=== PATIENT | female | born 1975 | race Caucasian/White ===

== ENCOUNTER 2019-02-07 15:51 | Emergency (ER) | payer BC ==
[2019-02-07] MEDS ORDERED: LIDOCAINE 1% MPF 5 ML VIAL ONE (16:27)
--- NOTE | 2019-02-07 16:40 | EDPHYS ---
Physician Documentation [facility] Name: Cesar Herman Age: 43 yrs Sex: Female : 1975 Arrival Date: 02/07/2019 Time: 15:52 Bed 12 Private MD: ED Physician Felipe Sales HPI: 02/07 16:40 This 43 yrs old Female presents to ER via Ambulatory with complaints of kb Puncture Wound To Hand. 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 The complaints affect kb the palm of left hand. Context: The problem was sustained at work. Onset: The symptoms/episode began/occurred just prior to arrival. Modifying factors: The symptoms are alleviated by nothing, the symptoms are aggravated by nothing. Associated signs and symptoms: The patient has no apparent associated signs or symptoms. Severity of symptoms: At their worst the symptoms were moderate, in the emergency department the symptoms are unchanged. The patient has not experienced similar symptoms in the past. The patient has not recently seen a physician. Historical: - Allergies: 15:56 No Known Allergies; la1 - PMHx: 15:56 None; la1 - Immunization history:: Adult Immunizations up to date. - Social history:: Smoking status: Patient/guardian denies using tobacco. - Ebola Screening: : No symptoms or risks identified at this time. ROS: 16:40 Constitutional: Negative for fever, chills, and weight loss, Cardiovascular: Negative kb for chest pain, palpitations, and edema, Respiratory: Negative for shortness of breath, cough, wheezing, and pleuritic chest pain, Abdomen/GI: Negative for abdominal pain, nausea, vomiting, diarrhea, and constipation, Back: Negative for injury and pain, MS/Extremity: Negative for injury and deformity, Neuro: Negative for headache, weakness, numbness, tingling, and seizure. 16:40 Skin: Positive for puncture. Exam: 16:40 Constitutional: This is a well developed, well nourished patient who is awake, alert, kb and in no acute distress. Head/Face: Normocephalic, atraumatic. Chest/axilla: Normal chest wall appearance and motion. Nontender with no deformity. No lesions are appreciated. Cardiovascular: Regular rate and rhythm with a normal S1 and S2. No gallops, murmurs, or rubs. Normal PMI, no JVD. No pulse deficits. Respiratory: Lungs have equal breath sounds bilaterally, clear to auscultation and percussion. No rales, rhonchi or wheezes noted. No increased work of breathing, no retractions or nasal flaring. Abdomen/GI: Soft, non-tender, with normal bowel sounds. No distension or tympany. No guarding or rebound. No evidence of tenderness throughout. MS/ Extremity: Pulses equal, no cyanosis. Neurovascular intact. Full, normal range of motion. Neuro: Awake and alert, GCS 15, oriented to person, place, time, and situation. Cranial nerves II-XII grossly intact. Motor strength 5/5 in all extremities. Sensory grossly intact. Cerebellar exam normal. Normal gait. 16:40 Skin: injury, puncture(s), that are superficial, of the palm of left hand. Vital Signs: 15:56 BP 136 / 91; Pulse 79; Resp 16; Temp 97.5; Pulse Ox 98% on R/A; Weight 99.79 kg; Height la1 5 ft. 9 in. (175.26 cm); 15:56 Body Mass Index 32.49 (99.79 kg, 175.26 cm) la1 Laceration: 16:38 Wound Repair of 1cm ( 0.4in ) subcutaneous laceration to palm of left hand. Linear kb shaped.. Distal neuro/vascular/tendon intact. Anesthesia: Wound infiltrated with 1 mls of 1% lidocaine. Wound prep: Extensive cleansing with hibiclenz by me, Wound irrigation with saline by me. Skin closed with 2 5-0 Prolene using interrupted sutures and sterile technique. Dressed with Neosporin, bandaid. Patient tolerated well. MDM: 16:26 Patient medically screened. kb 16:38 Data reviewed: vital signs, nurses notes. Data interpreted: Pulse oximetry: on room air kb is 98 %. Interpretation: normal. Counseling: I had a detailed discussion with the patient and/or guardian regarding: the historical points, exam findings, and any diagnostic results supporting the discharge/admit diagnosis, the need for outpatient follow up, a family practitioner, to return to the emergency department if symptoms worsen or persist or if there are any questions or concerns that arise at home. 02/07 16:26 Order name: Prolene, Sutures; Complete Time: 16:45 kb 02/07 16:26 Order name: Dressing - Wound; Complete Time: 16:45 kb 02/07 16:26 Order name: Gloves, Sterile; Complete Time: 16:45 kb 02/07 16:26 Order name: Setup Suture Tray; Complete Time: 16:45 kb Administered Medications: 16:35 Drug: Lidocaine (1 %) 1 vials Volume: 5 ml; Route: Infiltration; Disposition: 18:13 Co-signature as Attending Physician, Felipe Sales MD. rn Disposition: 02/07/19 16:39 Discharged to Home. Impression: Puncture wound without foreign body of left hand. - Condition is Stable. - Discharge Instructions: Puncture Wound, [id number]. - Medication Reconciliation Form, Thank You Letter, Antibiotic Education, Prescription Opioid Use form. - Follow up: Private Physician; When: 2 - 3 days; Reason: Recheck today's complaints, Continuance of care, Re-evaluation by your physician. Follow up: Emergency Department; When: As needed; Reason: Worsening of condition. Signatures: Rachel Quinones, BROILER CHEF OR COOK-C BROILER CHEF OR COOK-Ckb Mary More, RN Felipe Agrawal MD MD rn Attema, Lee, RN RN la1 Corrections: (The following items were deleted from the chart) 16:55 16:39 02/07/2019 16:39 Discharged to Home. Impression: Puncture wound without foreign iw body of left hand. Condition is Stable. Forms are Medication Reconciliation Form, Thank You Letter, Antibiotic Education, Prescription Opioid Use. Follow up: Private Physician; When: 2 - 3 days; Reason: Recheck today's complaints, Continuance of care, Re-evaluation by your physician. Follow up: Emergency Department; When: As needed; Reason: Worsening of condition. kb
--- NOTE | 2019-02-07 16:40 | ER ---
Nurse's Notes [facility] Name: Cesar Herman Age: 43 yrs Sex: Female : 1975 Arrival Date: 02/07/2019 Time: 15:52 Bed 12 Private MD: Diagnosis: Puncture wound without foreign body of left hand Presentation: 02/07 15:55 Presenting complaint: Patient states: I accidently stabbed my left palm with a la1 screwdriver. Last tetanus 2014. Transition of care: patient was not received from another setting of care. Onset of symptoms was February 07, 2019. Risk Assessment: Do you want to hurt yourself or someone else? Patient reports no desire to harm self or others. Initial Sepsis Screen: Does the patient meet any 2 criteria? No. Patient's initial sepsis screen is negative. Does the patient have a suspected source of infection? No. Patient's initial sepsis screen is negative. Care prior to arrival: None. 15:55 Method Of Arrival: Ambulatory la1 15:55 Acuity: AARON 4 la1 Historical: - Allergies: 15:56 No Known Allergies; la1 - PMHx: 15:56 None; la1 - Immunization history:: Adult Immunizations up to date. - Social history:: Smoking status: Patient/guardian denies using tobacco. - Ebola Screening: : No symptoms or risks identified at this time. Screenin:53 Abuse screen: Denies threats or abuse. Denies injuries from another. Nutritional iw screening: No deficits noted. Tuberculosis screening: No symptoms or risk factors identified. Fall Risk None identified. Assessment: 16:30 General: Appears in no apparent distress. Behavior is calm, cooperative. Pain: iw Complains of pain in left hand and palm of left hand. Neuro: Level of Consciousness is awake, alert, obeys commands. Cardiovascular: Patient's skin is warm and dry. Respiratory: Respiratory effort is even, unlabored. Derm: Skin is intact, is healthy with good turgor. Musculoskeletal: Range of motion: intact in all extremities. Injury Description: Puncture sustained to palm of left hand is superficial. Vital Signs: 15:56 BP 136 / 91; Pulse 79; Resp 16; Temp 97.5; Pulse Ox 98% on R/A; Weight 99.79 kg; Height la1 5 ft. 9 in. (175.26 cm); 15:56 Body Mass Index 32.49 (99.79 kg, 175.26 cm) la1 ED Course: 15:52 Patient arrived in ED. as 15:56 Triage completed. la1 15:56 Arm band placed on left wrist. la1 16:01 Rachel Quinones [facility]-C [facility]. kb 16:01 Felipe Sales MD is Attending Physician. kb 16:40 Assist provider with laceration repair on palm of left hand that was 2.5 cm. or less iw using Steri-strips. Set up tray. Performed by Rachel GALE Dressed with band aid, Patient tolerated well. Patient did not have IV access during this emergency room visit. 16:43 Mary More, RN is Primary Nurse. iw 16:55 Patient has correct armband on for positive identification. iw Administered Medications: 16:35 Drug: Lidocaine (1 %) 1 vials Volume: 5 ml; Route: Infiltration; iw Outcome: 16:39 Discharge ordered by MD. kb 16:54 Discharged to home ambulatory. iw 16:54 Condition: good 16:54 Discharge instructions given to patient, Instructed on discharge instructions, follow up and referral plans. Demonstrated understanding of instructions, follow-up care, wound care. 16:55 Patient left the ED. iw Signatures: Rachel Quinones FNP-C FNP-Lata Vasquez as Mary More, RN ESTEBAN iw Feroz Nguyen RN RN la1
== END 2019-02-07 16:55 | disposition home or self-care (01) ==
LOC: ER 15:51
PROC: 0JQK0ZZ Repair Left Hand Subcutaneous Tissue and Fascia, Open Approach (ICD-10-PCS; principal; 2019-02-07)
DX: S61.432A Puncture wound without foreign body of left hand, initial encounter (principal); W27.0XXA Contact with workbench tool, initial encounter; Y93.9 Activity, unspecified; Y92.89 Other specified places as the place of occurrence of the external cause; Y99.8 Other external cause status
CPT/HCPCS: 99283

== ENCOUNTER → 2023-07-25 | Emergency (ER) | payer BC ==
[~2023-07-25] MED LIST: KETOROLAC 30 MG/ML INJ ONE; MORPHINE 4 MG/ML SYR ONE; ONDANSETRON 4 MG/2 ML VIAL ONE
--- NOTE | 2023-07-25 10:50 | RAD REPORT ---
EXAM DESCRIPTION: RAD - Chest Single View - 07/25/2023 10:46 am CLINICAL HISTORY: BLUNT CHEST TRAUMA COMPARISON: No comparisons FINDINGS: Lines: None. Lungs: No evidence of edema or pneumonia. Pleural: No significant pleural effusions or pneumothorax. Cardiac: The heart size is within normal limits. Mediastinum: Within normal limits. Bones: No acute fractures. Other: None IMPRESSION: No acute cardiopulmonary disease.
[2023-07-25 10:58] LABS: Albumin 3.6 g/dL (3.4-5.0); Bilirubin Total 0.3 mg/dL (0.2-1.0); Potassium 3.9 mEq/L (3.5-5.1); Protein, Total 6.9 g/dL (6.4-8.2)
[2023-07-25 11:01] LABS: Absolute Lymphocytes (CBC) 2.1 K/uL (0.7-4.9); Hematocrit 41.2 % (36.0-45.0); Lymphocytes % 30.6 % (15.3-44.8); MCV 90.1 fL (80-100); MPV 7.5 fL (7.6-11.3); Platelets 210 thou/uL (152-406); RBC Red Blood Cell Count 4.57 M/uL (3.86-4.86)
--- NOTE | 2023-07-25 11:37 | RAD REPORT ---
EXAM DESCRIPTION: CT - Thorax W/ Con - 07/25/2023 11:28 am CLINICAL HISTORY: BLUNT CHEST TRAUMA COMPARISON: No comparisons TECHNIQUE: CT scan of the chest was obtained with IV contrast All CT scans are performed using dose optimization technique as appropriate and may include automated exposure control or mA/KV adjustment according to patient size. FINDINGS: Chest Wall: No suspicious thyroid nodules or pathologic lymphadenopathy. Lungs: No acute abnormality. 3 mm noncalcified pulmonary nodule in the left upper lobe. Other smaller sub 3 mm nodules noted. Pleura: No significant effusions or pneumothorax. Mediastinum/germain: No pathologic lymphadenopathy. Pulmonary arteries/Aorta: No filling defect identified. No aortic aneurysm. Heart: No significant pericardial effusion. Normal heart size. Upper abdomen: No acute abnormality.Left renal sinus cyst. Bones: Nondisplaced left lateral seventh rib fracture. IMPRESSION: Nondisplaced left anterolateral seventh rib fracture. No pneumothorax. Small sub 4 mm pulmonary nodules.Per Fleischner criteria, if the patient is low risk for lung cancer then no follow-up is required. If the patient is high risk for lung cancer, recommend 12 month follow -up chest CT .
--- NOTE | 2023-07-25 12:15 | ER ---
Nurse's Notes [facility] Name: Cesar Herman Age: 48 yrs Sex: Female : 1975 Arrival Date: 07/25/2023 Time: 10:13 Bed 13 Private MD: Varghese Dean V Diagnosis: Strain of muscle and tendon of back wall of thorax;Strain of muscle and tendon of front wall of thorax;Fall on same level, unspecified;Fracture of one rib, left side-7th;Abnormal findings on diagnostic imaging of other specified body structures-small subpleural pulmonary nodules, multiple Presentation: 07/25 10:21 Chief complaint: Patient states: MECHANICAL FALL Y/D 1030, LEFT RIB PAIN, LUE PAIN. bp Coronavirus screen: At this time, the client does not indicate any symptoms associated with coronavirus-19. Ebola Screen: No symptoms or risks identified at this time. Initial Sepsis Screen: Does the patient meet any 2 criteria? No. Patient's initial sepsis screen is negative. Does the patient have a suspected source of infection? No. Patient's initial sepsis screen is negative. Risk Assessment: Do you want to hurt yourself or someone else? Patient reports no desire to harm self or others. Onset of symptoms was July 24, 2023 at 10:30. 10:21 Method Of Arrival: Ambulatory bp 10:21 Acuity: AARON 2 bp Triage Assessment: 10:23 General: Appears in no apparent distress. uncomfortable, Behavior is cooperative, bp appropriate for age, anxious. Pain: Complains of pain in left lateral posterior chest, left lateral anterior chest and left arm. 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 - Social history:: Smoking status: Patient denies any tobacco usage or history of. - Family history:: not pertinent. Screenin:39 [facility] ED Fall Risk Assessment (Adult) History of falling in the last 3 months, me1 including since admission Yes- single mechanical fall (1 pt) Confusion or Disorientation No (0 pts) Intoxicated or Sedated No (0 pts) Impaired Gait No (0 pts) Mobility Assist Device Used No (0 pt) Altered Elimination No (0 pt) Score/Fall Risk Level 0 - 2 = Low Risk Maintained a safe environment, Provided non-skid footwear, Hourly rounding (assess needs \T\ fall precautionary measures) done. Abuse screen: Denies threats or abuse. Nutritional screening: No deficits noted. Tuberculosis screening: No symptoms or risk factors identified. Assessment: 11:55 Reassessment: No changes from previously documented assessment. me1 Vital Signs: 10:21 BP 126 / 78; Pulse 76; Resp 16; Temp 98; Pulse Ox 100% ; Weight 89.81 kg; Height 5 ft. bp 7 in. ; 10:28 BP 119 / 91; Pulse 75; Resp 15; Pulse Ox 99% on R/A; me1 11:00 BP 115 / 74; Pulse 74; Resp 16; Pulse Ox 99% on R/A; me1 12:00 BP 118 / 74; Pulse 69; Resp 16; Pulse Ox 100% on R/A; me1 10:21 Body Mass Index 31.01 (89.81 kg, 170.18 cm) bp ED Course: 10:15 Patient arrived in ED. rg4 10:15 Varghese Dean MD is Private Physician. rg4 10:16 Jj Ardon MD is Attending Physician. radha 10:23 Triage completed. bp 10:23 Arm band placed on. bp 10:27 Stephan Monroy, RN is Primary Nurse. rs5 10:34 Inserted saline lock: 22 gauge in right antecubital area, using aseptic technique. ds4 Blood collected. 10:48 Chest Single View XRAY In Process Unspecified. EDMS 11:30 CT Chest W/ Con In Process Unspecified. EDMS 12:14 Varghese Dean MD is Referral Physician. radha 12:31 INCENTIVE SPIROMETRY Sent. me1 12:39 Patient has correct armband on for positive identification. Bed in low position. Call me1 light in reach. Side rails up X 1. Provided Education on: POC. Verbalized understanding. . 12:39 No provider procedures requiring assistance completed. me1 12:40 IV discontinued, intact, bleeding controlled, No redness/swelling at site. Pressure me1 dressing applied. Administered Medications: 10:38 Drug: Ondansetron IVP 4 mg IVP once; over 2 minutes Route: IVP; Site: right antecubital;rs5 12:27 Follow up: Response: No adverse reaction me1 10:39 Drug: Ketorolac IVP 30 mg IVP once Route: IVP; Site: right antecubital; rs5 12:28 Follow up: Response: No adverse reaction; Pain is decreased me1 11:04 Not Given (Patient Refused): morphineor iv 2 mg IVP once over 4 mins rs5 11:04 Not Given (Patient Refused): morphineor iv 2 mg IVP once over 4 mins rs5 Medication: 12:41 VIS not applicable for this client. me1 Outcome: 12:14 Discharge ordered by . radha 12:39 Discharged to nh1 12:39 Discharged to home ambulatory, 12:39 Condition: stable 12:39 Instructed on discharge instructions, follow up and referral plans. medication usage, Demonstrated understanding of instructions, follow-up care, medications, Prescriptions given X 3, 12:41 Patient left the ED. me1 Signatures: Dispatcher [employer] EDMS Jj Ardon MD MD cha Swanson, Donovan ds4 Arti Rodriguez rg4 Charbel Ferrari, RN RN bp Stephan Monroy RN RN rs5 Jennifer Siegel RN RN me1 Corrections: (The following items were deleted from the chart) 12:29 10:21 Chief complaint: Patient states: MECHANICAL FALL Y/D 1030, LEFT RIB PAIN, LUE me1 PAIN bp
--- NOTE | 2023-07-25 12:15 | EDPHYS ---
Physician Documentation [facility] Name: Cesar Herman Age: 48 yrs Sex: Female : 1975 Arrival Date: 07/25/2023 Time: 10:13 Bed 13 Private MD: Varghese Dean V ED Physician jJ Ardon HPI: 07/25 10:27 This 48 yrs old Female presents to ER via Ambulatory with complaints of Fall radha Injury, Rib Pain. 10:27 Details of fall: The patient fell from an upright position, while walking. Onset: The radha symptoms/episode began/occurred yesterday. Associated injuries: The patient sustained injury to the chest, specifically the left lateral posterior chest and left lateral anterior chest, contusion, pain with breathing, pain with movement, tenderness. Severity of symptoms: At their worst the symptoms were mild, in the emergency department the symptoms are unchanged. The patient has not experienced similar symptoms in the past. 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 - Social history:: Smoking status: Patient denies any tobacco usage or history of. - Family history:: not pertinent. ROS: 10:27 Constitutional: Negative for fever, chills, and weight loss, Eyes: Negative for injury, radha pain, redness, and discharge, ENT: Negative for injury, pain, and discharge, Neck: Negative for injury, pain, and swelling, Cardiovascular: Negative for chest pain, palpitations, and edema, Respiratory: Negative for shortness of breath, cough, wheezing, and pleuritic chest pain, Abdomen/GI: Negative for abdominal pain, nausea, vomiting, diarrhea, and constipation, Back: Negative for injury and pain, : Negative for injury, bleeding, discharge, and swelling, MS/Extremity: Negative for injury and deformity, Skin: Negative for injury, rash, and discoloration, Neuro: Negative for headache, weakness, numbness, tingling, and seizure, Psych: Negative for depression, anxiety, suicide ideation, homicidal ideation, and hallucinations, Allergy/Immunology: Negative for hives, rash, and allergies, Endocrine: Negative for neck swelling, polydipsia, polyuria, polyphagia, and marked weight changes, Hematologic/Lymphatic: Negative for swollen nodes, abnormal bleeding, and unusual bruising, Exam: 10:27 Constitutional: This is a well developed, well nourished patient who is awake, alert, radha and in no acute distress. Head/Face: Normocephalic, atraumatic. Eyes: Pupils equal round and reactive to light, extra-ocular motions intact. Lids and lashes normal. Conjunctiva and sclera are non-icteric and not injected. Cornea within normal limits. Periorbital areas with no swelling, redness, or edema. ENT: Nares patent. No nasal discharge, no septal abnormalities noted. Tympanic membranes are normal and external auditory canals are clear. Oropharynx with no redness, swelling, or masses, exudates, or evidence of obstruction, uvula midline. Mucous membranes moist. Neck: Trachea midline, no thyromegaly or masses palpated, and no cervical lymphadenopathy. Supple, full range of motion without nuchal rigidity, or vertebral point tenderness. No Meningismus. Cardiovascular: Regular rate and rhythm with a normal S1 and S2. No gallops, murmurs, or rubs. Normal PMI, no JVD. No pulse deficits. Respiratory: Lungs have equal breath sounds bilaterally, clear to auscultation and percussion. No rales, rhonchi or wheezes noted. No increased work of breathing, no retractions or nasal flaring. Abdomen/GI: Soft, non-tender, with normal bowel sounds. No distension or tympany. No guarding or rebound. No evidence of tenderness throughout. Back: No spinal tenderness. No costovertebral tenderness. Full range of motion. Skin: Warm, dry with normal turgor. Normal color with no rashes, no lesions, and no evidence of cellulitis. MS/ Extremity: Pulses equal, no cyanosis. Neurovascular intact. Full, normal range of motion. Neuro: Awake and alert, GCS 15, oriented to person, place, time, and situation. Cranial nerves II-XII grossly intact. Motor strength 5/5 in all extremities. Sensory grossly intact. Cerebellar exam normal. Normal gait. Psych: Awake, alert, with orientation to person, place and time. Behavior, mood, and affect are within normal limits. 10:27 Chest/axilla: Inspection: normal, Palpation: tenderness, that is moderate, of the left lateral posterior chest and left lateral anterior chest, Axilla: are normal, Breasts: are normal, Lymph nodes: lymphadenopathy is not appreciated, Vital Signs: 10:21 BP 126 / 78; Pulse 76; Resp 16; Temp 98; Pulse Ox 100% ; Weight 89.81 kg; Height 5 ft. bp 7 in. ; 10:28 BP 119 / 91; Pulse 75; Resp 15; Pulse Ox 99% on R/A; me1 11:00 BP 115 / 74; Pulse 74; Resp 16; Pulse Ox 99% on R/A; me1 12:00 BP 118 / 74; Pulse 69; Resp 16; Pulse Ox 100% on R/A; me1 10:21 Body Mass Index 31.01 (89.81 kg, 170.18 cm) bp MDM: 10:16 Patient medically screened. [facility] 10:32 Differential diagnosis: contusion, fracture, multiple trauma, sprain, strain. Data radha reviewed: vital signs, nurses notes, lab test result(s), radiologic studies. Consideration of Admission/Observation Escalation of care including admission/observation considered. I considered the following discharge prescriptions or medication management in the emergency department Medications were administered in the Emergency Department. See MAR. Independent interpretation of the following test(s) in the Emergency Department X-Ray: My interpretation is cxr and ct. Test considered but Not performed: MRI: no mri. Care significantly affected by the following chronic conditions: Diabetes, hypothyroid. 07/25 10:26 Order name: CBC with Diff; Complete Time: 11:20 [facility] 07/25 10:26 Order name: Comprehensive Metabolic Panel; Complete Time: 11:20 [facility] 07/25 10:26 Order name: Chest Single View XRAY; Complete Time: 11:20 [facility] 07/25 10:27 Order name: CT Chest W/ Con; Complete Time: 12:13 [facility] 07/25 10:27 Order name: INCENTIVE SPIROMETRY radha Administered Medications: 10:38 Drug: Ondansetron IVP 4 mg IVP once; over 2 minutes Route: IVP; Site: right antecubital;rs5 12:27 Follow up: Response: No adverse reaction ma1 10:39 Drug: Ketorolac IVP 30 mg IVP once Route: IVP; Site: right antecubital; rs5 12:28 Follow up: Response: No adverse reaction; Pain is decreased me1 11:04 Not Given (Patient Refused): morphineor iv 2 mg IVP once over 4 mins rs5 11:04 Not Given (Patient Refused): morphineor iv 2 mg IVP once over 4 mins rs5 Disposition Summary: 07/25/23 12:14 Discharge Ordered Notes: Location: Home radha Problem: new radha Symptoms: have improved radha Condition: Stable radha Diagnosis - Strain of muscle and tendon of back wall of thorax radha - Strain of muscle and tendon of front wall of thorax radha - Fall on same level, unspecified radha - Fracture of one rib, left side - 7th radha - Abnormal findings on diagnostic imaging of other specified body structures - small radha subpleural pulmonary nodules, multiple Followup: radha - With: Varghese Dean MD - When: 2 - 3 days - Reason: Recheck today's complaints, Continuance of care, Re-evaluation by your physician Discharge Instructions: - Discharge Summary Sheet radha - Rib Contusion radha - Fall Prevention in the Home, Adult radha - Rib Fracture radha - How to Use an Incentive Spirometer radha - Incidental Abnormal Radiological Finding radha - Pulmonary Nodule, [id number] radha - Rib Fracture, [id number] [facility] Forms: - Medication Reconciliation Form [facility] - Thank You Letter [facility] - Antibiotic Education radha - Prescription Opioid Use radha - Patient Portal Instructions [facility] - Leadership Thank You Letter [facility] Prescriptions: - acetaminophen-codeine 300-30 mg Oral tablet - take 2 tablet ORAL route every 6 hours as needed for pain; 20 tablet; Refills: radha 0, Product Selection Permitted - Diclofenac Sodium 75 mg Oral Tablet Sustained Release - take 1 tablet ORAL route 2 times per day; 30 tablet; Refills: 0, Product [facility] Selection Permitted - Cyclobenzaprine 5 mg Oral Tablet - take 1 tablet ORAL route 3 times per day As needed; 15 tablet; Refills: 0, radha Product Selection Permitted Signatures: Dispatcher [employer] Jj Burnett MD MD cha Peltier, Brian RN RN Stephan Monroy RN RN rs5 Jennifer Siegel RN me1
[2023-07-25 16:16] VITALS: BP 118/74; TEMP 98; O2SAT 100
== END ==
LOC: ER 10:13
DX: S22.32XA Fracture of one rib, left side, initial encounter for closed fracture (principal); S29.012A Strain of muscle and tendon of back wall of thorax, initial encounter; S29.011A Strain of muscle and tendon of front wall of thorax, initial encounter; R91.8 Other nonspecific abnormal finding of lung field; W18.30XA Fall on same level, unspecified, initial encounter; E11.9 Type 2 diabetes mellitus without complications
CPT/HCPCS: 36415; 71045; 71260; 80053; 85025; J2405; Q9967

== ENCOUNTER 2024-07-20 15:44 | Emergency (ER) | payer BC ==
--- NOTE | 2024-07-20 17:22 | RAD REPORT ---
Abdomen Exam Limited: 07/20/2024 4:58 PM CLINICAL HISTORY: ABD PAIN STUDY: Limited right upper quadrant ultrasound of abdomen. COMPARISON: None. FINDINGS: Liver: Limited evaluation but grossly unremarkable. Bile ducts: No intrahepatic or extrahepatic biliary ductal dilatation. Common bile duct measures 3 mm. Gallbladder: Normal. IMPRESSION: Unremarkable exam.
[2024-07-20] MEDS ORDERED: NA CHLORIDE 0.9% 1,000 ML ONE ×2 (17:35→18:36)
[2024-07-20 17:40] LABS: Absolute Lymphocytes (CBC) 1.3 K/uL (0.7-4.9); Basophils % 0.2 % (0-1.3); Eosinophils % 0.1 % (0-4.4); Hematocrit 45.4 % (36.0-45.0); Hemoglobin 15.5 g/dL (12.0-15.0); Lymphocytes % 11.5 % (15.3-44.8); MCH 31.7 pg (27.0-35.0); MPV 7.4 fL (7.6-11.3); Monocytes % 8.7 % (3.3-12.3); Neutrophils % 79.5 % (41.7-73.7); Platelets 316 thou/uL (152-406); RBC Red Blood Cell Count 4.88 M/uL (3.86-4.86); Red Cell Distribution Width 14.7 % (12.1-15.2)
--- NOTE | 2024-07-20 17:50 | RAD REPORT ---
EXAM: Chest Pa And Lat (2 Views) HISTORY: 49 years Female tachypnea COMPARISON: 07/25/2023 FINDINGS: LUNGS/PLEURA: The lungs are clear. No pleural effusions or pneumothorax. No pulmonary edema. MEDIASTINUM: The mediastinal silhouette is within normal limits. CARDIAC: The cardiac silhouette is within normal limits. UPPER ABDOMEN: No significant abnormality. BONES: No acute abnormality. LINES/TUBES/OTHER: N/A IMPRESSION: No evidence of acute cardiopulmonary disease.
[2024-07-20 18:03] LABS: ALT/SGPT 29 U/L (13-56); Albumin 3.5 g/dL (3.4-5.0); Albumin/Globulin Ratio 0.7 (1.1-1.8); Alkaline Phosphatase 117 U/L (45-117); BUN Blood Urea Nitrogen 22 mg/dL (7-18); Bilirubin Total 0.7 mg/dL (0.2-1.0); Globulin 5.1 g/dL (2.3-3.5); Glomerular Filtration Rate 45 ml/min (=/>90); Glucose Level 215 mg/dL (74-106); Lipase 181 U/L (13-75); Protein, Total 8.6 g/dL (6.4-8.2); Sodium Level 135 mEq/L (136-145)
[2024-07-20 18:06] LABS: AST/SGOT < 10 U/L (15-37)
[2024-07-20 18:07] LABS: Bicarbonate < 8 mEq/L (21-32)
[2024-07-20 18:15] LABS: SARS-CoV-2 Antigen CONTROL BLUE LINE VIS/BG OK; SARS-CoV-2 Antigen Rapid Res Negative (Negative)
[2024-07-20] MEDS ORDERED: SODIUM BICARB 50 MEQ/50ML VIAL ONE (18:37)
[2024-07-20] MEDS ORDERED: D5W 1,000 ML IV ONE (18:37)
[2024-07-20 18:40] LABS: Specific Gravity > 1.030 (1.005-1.030)
[2024-07-20 18:42] LABS: Specific Gravity > 1.030 (1.005-1.030); Sqamous Epithelial <5 /HPF (None Seen); Urine Bacteria <20 /HPF (<20); Urine Bilirubin NEGATIVE (Negative); Urine Blood 2+ (Negative); Urine Clarity Clear (Clear); Urine Color Light-Yellow (Yellow); Urine Culture Reflex Order NOT NEEDED; Urine Glucose 4+ (Over) (Negative); Urine Ketones 4+ (Over) (Negative); Urine Microscopic Reflex YN ORDER UMIC; Urine Mucus Slight /HPF (None Seen); Urine Nitrite NEGATIVE (Negative); Urine Protein 1+ (Negative); Urine RBC <5 /HPF (None Seen); Urine Urobilinogen Normal (Normal); Urine WBC <5 /HPF (<5); Urine WBC Clump Rare /HPF (None Seen); Urine pH 5.5 (5.0-7.0)
[2024-07-20 18:50] LABS: Blood O2 Saturation 97.6 % (92-98.5)
[2024-07-20 18:51] LABS: Arterial Blood Carboxyhemoglob 0.8 % (0-1.5); Blood Gas Oxyhemoglobin 94.8 % (94-97); Blood Gas THB 14.8 g/dl (12-18)
[2024-07-20] MEDS ORDERED: NA CHLORIDE 0.9% 100 ML ONE (19:01)
[2024-07-20] MEDS ORDERED: INSULIN REGULAR (HUMAN) 100 UNIT/ML ONE (19:01)
--- NOTE | 2024-07-20 19:41 | RAD REPORT ---
EXAMINATION: CT ABDOMEN AND PELVIS WITH CONTRAST CLINICAL INDICATION: Female, 49 years old.left flank pain, epigastric pain TECHNIQUE: CT abdomen and pelvis was performed, after the administration of IV contrast, as per [facility] protocol. Axial, sagittal and coronal reconstructions were obtained. One or more of the following dose reduction techniques were used: Automated exposure control, adjustment of the mA and/o r kV according to patient size, and/or iterative reconstruction. Unless otherwise specified, incidental findings do not require dedicated imaging follow-up. [id number]. COMPARISON: No prior exam. FINDINGS: LOWER CHEST: No acute process identified.Small pericardial effusion. UPPER GI: Nonspecific distention of the stomach with fluid which may be recently ingested LIVER: No significant focal abnormality. GALLBLADDER/BILE DUCTS: No biliary ductal dilatation.? PANCREAS: No mass, ductal dilation, or jessee-pancreatic fluid. SPLEEN: Unremarkable. ADRENALS: No adrenal masses. KIDNEYS AND URETERS: Mild left-sided hydronephrosis. No ureteral calculus identified. Left-sided urot helial thickening. Right kidney is unremarkable. ABDOMINAL AORTA AND OTHER VESSELS: Normal caliber aorta and IVC. PERITONEUM: No abnormal free fluid. No free air. LYMPH NODES: No pathologic lymphadenopathy. ABDOMINAL WALL: Unremarkable SMALL BOWEL/COLON: Small bowel has normal course and caliber. No colonic wall thickening or pericolon ic inflammatory changes.Appendix absent. URINARY BLADDER: Underdistended but grossly unremarkable. REPRODUCTIVE ORGANS: No pathologic process. MUSCULOSKELETAL: Multilevel degenerative changes in the spine. No acute fracture. ADDITIONAL FINDINGS: None. IMPRESSION: Mild left-sided hydronephrosis with urothelial thickening but no obstructing stone. This is concernin g for urinary tract infection/polynephritis. No renal abscess.
--- NOTE | 2024-07-20 19:46 | ER ---
Nurse's Notes [facility] Name: Cesar Herman Age: 49 yrs Sex: Female : 1975 Arrival Date: 07/20/2024 Time: 15:44 Bed 19 Private MD: Diagnosis: Metabolic acidosis;Other acute pancreatitis without necrosis or infection Presentation: 07/20 16:24 Chief complaint: Patient states: GENERAL WEAKNESS NOT HAVING ENERGY DRINKING PEDIALYTE db X 3 DAYS. SUNDAY STARTED WITH PAIN AND NOT FEELING WELL. LEFT FLANK PAIN STARTED SUNDAY. Coronavirus screen: Client denies travel out of the [place] in the last 14 days. At this time, the client does not indicate any symptoms associated with coronavirus-19. Ebola Screen: Patient negative for fever greater than or equal to 101.5 degrees Fahrenheit, and additional compatible Ebola Virus Disease symptoms Patient denies exposure to infectious person. Patient denies travel to an Ebola-affected area in the 21 days before illness onset. No symptoms or risks identified at this time. Initial Sepsis Screen: Does the patient meet any 2 criteria? No. Patient's initial sepsis screen is negative. Does the patient have a suspected source of infection? No. Patient's initial sepsis screen is negative. Risk Assessment: Do you want to hurt yourself or someone else? Patient reports no desire to harm self or others. Onset of symptoms was July 15, 2024. 16:24 Method Of Arrival: Wheelchair db 16:24 Acuity: AARON 3 db Triage Assessment: 16:27 General: Appears in no apparent distress. uncomfortable, Behavior is calm, cooperative. db Pain: Complains of pain in posterior aspect of left lateral abdomen and anterior aspect of left lateral abdomen. Neuro: Level of Consciousness is awake, alert, obeys commands, Oriented to person, place, time, situation. Respiratory: Airway is patent Respiratory effort is even, labored, Respiratory pattern is regular, symmetrical. GI: Abdomen is flat, non-distended. Historical: - PMHx: 16:27 diabetes mellitus; Hypothyroidism; db - Immunization history:: Adult Immunizations. - Infectious Disease History:: Denies. - Family history:: not pertinent. - Hospitalizations: : No recent hospitalization is reported. - Social history:: Smoking status: unknown. Screenin:44 [facility] ED Fall Risk Assessment (Adult) History of falling in the last 3 months, me1 including since admission No falls in past 3 months (0 pts) Confusion or Disorientation No (0 pts) Intoxicated or Sedated No (0 pts) Impaired Gait No (0 pts) Mobility Assist Device Used No (0 pt) Altered Elimination No (0 pt) Score/Fall Risk Level 0 - 2 = Low Risk Maintained a safe environment, Provided non-skid footwear, Hourly rounding (assess needs \T\ fall precautionary measures) done. Abuse screen: Denies threats or abuse. Nutritional screening: No deficits noted. Tuberculosis screening: No symptoms or risk factors identified. Assessment: 17:44 General: Appears uncomfortable, ill, well groomed, well developed, well nourished, me1 Behavior is calm, cooperative, appropriate for age, Reports left flank pain that started Sunday, reports lethargic and just not feeling well since sunday. Pain: Complains of pain in abdomen and anterior aspect of left lateral abdomen and posterior aspect of left lateral abdomen Pain does not radiate. Pain currently is 0 out of 10 on a pain scale. at worst was 8 out of 10 on a pain scale. Quality of pain is described as sharp, Pain began suddenly, Is intermittent. Neuro: Level of Consciousness is awake, alert, obeys commands, Oriented to person, place, time, situation, Appropriate for age. Cardiovascular: Patient's skin is warm and dry. Respiratory: Airway is patent Respiratory effort is even, unlabored, Respiratory pattern is regular, symmetrical. GI: Abdomen is non-distended, Bowel sounds present X 4 quads. Abd is soft X 4 quads Reports upper abdominal pain. GI: Reports anorexia. : Reports pain in left flank(s), since sunday. EENT: No signs and/or symptoms were reported regarding the EENT system. Derm: Skin is intact, is healthy with good turgor, Skin is pink, warm \T\ dry. Musculoskeletal: No signs and/or symptoms reported regarding the musculoskeletal system. 19:36 Reassessment: Pt is alert and oriented, heavy breathing noted, denies CP, on heparin ay gtt \T\ 5 units/hr. 21:22 Reassessment: Called [facility] to give RN to RN report but receiving RN was ay not available for report. Spoke with ESTEBAN Macdonald who took a call back number to be given to the receiving RN to call back. 21:48 Reassessment: RN to RN report given to ESTEBAN Liang. ay Vital Signs: 16:24 BP 147 / 107; Pulse 103; Resp 24; Temp 98.4; Pulse Ox 100% ; db 17:56 BP 133 / 91; Pulse 95; Resp 17; Pulse Ox 98% on R/A; me1 18:58 Weight 108.86 kg; hb 20:53 BP 137 / 95; Pulse 102; Resp 24; Pulse Ox 100% on 2 lpm NC; ay ED Course: 15:47 Patient arrived in ED. al6 16:11 Felipe Sales MD is Attending Physician. rn 16:27 Triage completed. db 16:30 Arm band placed on. db 17:05 Jennifer Siegel, RN is Primary Nurse. me1 17:16 US Abdomen Limited In Process Unspecified. EDMS 17:29 XRAY Chest Pa And Lat (2 Views) In Process Unspecified. EDMS 17:31 T4 Free Sent. bc6 17:31 TSH Sent. bc6 17:31 SARS-COV-2 Antigen Rapid Sent. bc6 17:31 Flu Sent. bc6 17:32 CBC with Diff Sent. bc6 17:32 CMP Sent. bc6 17:32 Lipase Sent. bc6 17:32 Initial lab(s) drawn, by me, sent to lab. COVID swab sent to lab. Flu and/or RSV swab bc6 sent to lab. Inserted saline lock: 20 gauge in right antecubital area, using aseptic technique. Blood collected. Flushed with 10 mL NS. 17:44 Patient has correct armband on for positive identification. Bed in low position. Call me1 light in reach. Side rails up X2. Provided Education on: POC, Verbalized understanding.. Client placed on continuous cardiac and pulse oximetry monitoring. NIBP monitoring applied. Pulse ox on. NIBP on. 17:44 No provider procedures requiring assistance completed. me1 18:48 Inserted saline lock: 18 gauge in left antecubital area, using aseptic technique. hb 18:49 Lactate w/ 2H reflex if indic. Sent. me1 19:08 EKG done, by ED staff, reviewed by Felipe Sales MD. me1 19:15 Attending Physician role handed off by Felipe Sales MD ms3 19:15 Stas Sawant DO is Attending Physician. ms3 19:36 CT Abd/Pelvis - IV Contrast Only In Process Unspecified. EDMS 20:03 Attempted to initiated transfer with [facility]. No answer, provider notified. rv1 20:05 Initiated transfer with Martha at [facility]. rv1 20:43 Doc to Doc with [facility] Director at [facility]. rv1 20:45 Blood Culture Adult (2) Sent. ay 20:45 Protime (+inr) Sent. ay 20:46 Ptt, Activated Sent. ay 20:[address] Mansfield to [facility] 8A [id number]. Report #[id number]. rv1 23:08 Patient transferred, IV remains in place. ay Administered Medications: 17:50 Drug: NS 0.9% IV 1000 ml IV at 1 bolus Per protocol; to be given as a bolus over 60 me1 minutes Route: IV; Rate: 1 bolus; Site: right antecubital; 20:58 Follow up: Response: No adverse reaction; IV Status: Completed infusion; IV Intake: ay 1000ml 18:47 Drug: NS 0.9% IV 1000 ml IV at 1000 ml once; to be given as a bolus over 60 minutes hb Route: IV; Rate: 1000 ml; Site: left antecubital; 20:57 Follow up: Response: No adverse reaction; IV Status: Completed infusion; IV Intake: ay 1000ml 18:48 Drug: D5W IV 1000 ml, Sodium Bicarbonate IVP 150 mEq IV at calculated rate continuous hb {Note: Admin at 125mls/hr per Dr. Sales.} Route: IV; Rate: calculated rate; Site: right antecubital; 23:11 Follow up: IV Status: Infusion continued upon transfer ay 19:04 Drug: Insulin Drip - (Insulin Regular Human IVP 100 units, NS 0.9% IV 100 ml) IV at me1 calculated rate continuous; Standard concentration 1unit/ml; Dose for DKA is 0.1 units/kg/hr {Co-Signature: vahe (Brinda Miller RN).} {Note: START INSULIN DRIP AT 5 UNITS/HR PER DR SALES.} Route: IV; Rate: calculated rate; Site: left antecubital; 23:12 Follow up: IV Status: Infusion continued upon transfer ay 20:45 Drug: Rocephin IV 1 grams IV at calculated rate once; Given slow IV push per pharmacy ay instructions Route: IV; Rate: calculated rate; Site: right antecubital; 20:57 Follow up: Response: No adverse reaction ay 21:01 Follow up: Response: No adverse reaction ay 21:01 Drug: Synthroid PO 150 mcg PO once Route: PO; ay 23:10 Follow up: Response: No adverse reaction ay Medication: 17:44 VIS not applicable for this client. me1 Point of Care Testing: Blood Glucose: 16:27 Blood Glucose: 202 mg/dL; db Ranges: Intake: 20:57 IV: 1000ml; Total: 1000ml. ay 20:58 IV: 1000ml; Total: 2000ml. ay Outcome: 19:45 ER care complete, transfer ordered by . ms3 23:08 Transferred to [facility], ay 23:08 Condition: stable 23:08 Instructed on the need for transfer, Demonstrated understanding of instructions, 23:12 Patient left the ED. ay Signatures: Dispatcher [employer] EDMS Felipe Sales MD MD rn Baxter, Heather, RN RN Stas Mckeon DO DO ms3 Kenyatta Avendaño, RN RN db Iwona Ojeda rv1 Yun Miller 6 Jennifer Siegel, RN RN dc1 Brinda Miller RN Judi Cortés iaBrinda Bradley RN Corrections: (The following items were deleted from the chart) 17:22 16:24 Chief complaint: Patient states: GENERAL WEAKNESS NOT HAVING ENERGY DRINKING me1 PEDIALYTE X 3 DAYS. SUNDAY STARTED WITH PAIN AND NOT FEELING WELL. LEFT FLANK PAIN STARTED SUNDAY db
--- NOTE | 2024-07-20 19:46 | EDPHYS ---
Physician Documentation [facility] Name: Cesar Herman Age: 49 yrs Sex: Female : 1975 Arrival Date: 07/20/2024 Time: 15:44 Bed 19 Private MD: ED Physician Stas Sawant HPI: 07/20 16:55 This 49 yrs old Female presents to ER via Wheelchair with complaints of Abdominal Pain, rn Weakness, lethargic, not eating much. 16:56 The patient presents with abdominal pain in the left upper quadrant. rn 16:56 Onset: The symptoms/episode began/occurred. rn 16:56 Onset: The symptoms/episode began/occurred 5 day(s) ago. The symptoms do not radiate. rn Associated signs and symptoms: Pertinent positives: nausea, shortness of breath, Pertinent negatives: blood in stools, chest pain, vaginal discharge, vomiting blood. The symptoms are described as achy. Modifying factors: The symptoms are alleviated by nothing, the symptoms are aggravated by nothing. Severity of pain: At its worst the pain was mild in the emergency department the pain is unchanged. The patient has not experienced similar symptoms in the past. Patient reports left flank pain that began 5 days ago associated with nausea and decreased appetite. Now associated with shortness of breath. Denies cough but feels like cannot slow her breathing down. Reports has been out of her diabetic medication for some time now and does not know her blood sugar. No fever. Reports generalized weakness and malaise.. Historical: - PMHx: 16:27 diabetes mellitus; Hypothyroidism; db - Immunization history:: Adult Immunizations. - Infectious Disease History:: Denies. - Family history:: not pertinent. - Hospitalizations: : No recent hospitalization is reported. - Social history:: Smoking status: unknown. ROS: 16:56 Constitutional: Negative for fever, chills, and weight loss, Cardiovascular: Negative rn for chest pain, palpitations, and edema, Respiratory: Positive for shortness of breath Abdomen/GI: Positive for abdominal pain with nausea : Negative for injury, bleeding, discharge, and swelling, MS/Extremity: Negative for injury and deformity, Skin: Negative for injury, rash, and discoloration, Neuro: Positive for generalized weakness, negative for seizure Exam: 16:56 Constitutional: This is a well developed, well nourished patient who is awake, alert, rn tachypneic Head/Face: Normocephalic, atraumatic. ENT: Dry mucous membranes Neck: No Meningismus. Cardiovascular: Tachycardic, regular Respiratory: Moderate tachypnea Abdomen/GI: Soft, no focal tenderness or distention. Back: No spinal tenderness. MS/ Extremity: Pulses equal, no cyanosis. Neurovascular intact. Full, normal range of motion. Equal circumference. Neuro: Awake and alert, GCS 15 Vital Signs: 16:24 BP 147 / 107; Pulse 103; Resp 24; Temp 98.4; Pulse Ox 100% ; db 17:56 BP 133 / 91; Pulse 95; Resp 17; Pulse Ox 98% on R/A; me1 18:58 Weight 108.86 kg; hb 20:53 BP 137 / 95; Pulse 102; Resp 24; Pulse Ox 100% on 2 lpm NC; ay MDM: 16:11 Medical Screening Exam initiated rn 18:54 ED course: Discussed case with Dr. Del Rio, hospitalist on-call, he agrees we need to rn treat as DKA until proven otherwise, recommends half insulin drip dose and will see patient. Patient also started on bicarb drip.. 19:12 Transition of care: After a detail discussion of the patient's case, care is rn transferred to Stas Sawant DO. 19:15 Transition of care: Care assumed from Felipe Sales MD. ms3 20:52 Differential diagnosis: urinary tract infection, Pancreatitis vs DKA. Data reviewed: ms3 vital signs, nurses notes, and as a result, I will transfer patient. Consideration of Admission/Observation Will transfer patient. Management of patient was discussed with the following: Lead Electrical Controls Engineer- Dr Mansfield. I considered the following discharge prescriptions or medication management in the emergency department Medications were administered in the Emergency Department. See MAR. Counseling: I had a detailed discussion with the patient and/or guardian regarding the historical points, exam findings, and any diagnostic results supporting the discharge/admit diagnosis, lab results, radiology results, the need to transfer to another facility, for higher level of care. Response to treatment: the patient's symptoms have mildly improved after treatment. 07/20 16:33 Order name: CBC with Diff; Complete Time: 20:02 rn 07/20 16:33 Order name: CMP; Complete Time: 18:19 rn 07/20 16:33 Order name: Lipase; Complete Time: 18:19 rn 07/20 16:33 Order name: Test, Urine; Complete Time: 18:47 rn 07/20 16:33 Order name: Urinalysis w/ reflexes; Complete Time: 18:47 rn 07/20 16:33 Order name: Flu; Complete Time: 18:19 rn 07/20 16:33 Order name: SARS-COV-2 Antigen Rapid; Complete Time: 18:19 rn 07/20 16:33 Order name: TSH; Complete Time: 18:19 rn 07/20 16:33 Order name: T4 Free; Complete Time: 18:19 rn 07/20 18:21 Order name: Lactate w/ 2H reflex if indic.; Complete Time: 18:58 rn 07/20 18:36 Order name: ABG: ok with VBG; Complete Time: 18:58 rn 07/20 19:06 Order name: Blood Culture Adult (2) rn 07/20 19:06 Order name: Protime (+inr); Complete Time: 21:08 rn 07/20 19:06 Order name: Ptt, Activated; Complete Time: 21:08 rn 07/20 19:52 Order name: CBC Smear Scan; Complete Time: 20:02 EDMS 07/20 20:01 Order name: ABG: VBG; Complete Time: 21:08 ms3 07/20 16:33 Order name: CT Abd/Pelvis - IV Contrast Only; Complete Time: 19:43 rn 07/20 16:33 Order name: US Abdomen Limited; Complete Time: 17:23 rn 07/20 16:33 Order name: XRAY Chest Pa And Lat (2 Views); Complete Time: 17:54 rn 07/20 19:06 Order name: EKG; Complete Time: 19:06 rn 07/20 16:33 Order name: IV Saline Lock; Complete Time: 17:32 rn 07/20 16:33 Order name: Labs collected and sent; Complete Time: 17:32 rn 07/20 16:33 Order name: Glucose Level rn 07/20 16:33 Order name: EKG - Nurse/Tech; Complete Time: 19:08 rn 07/20 18:57 Order name: Misc. Order: put insulin dose at half dose; Complete Time: 19:04 rn 07/20 19:06 Order name: Cardiac monitoring; Complete Time: 20:45 rn 07/20 19:06 Order name: IV Saline Lock - Large Bore; Complete Time: 20:45 rn 07/20 19:06 Order name: O2 Per Protocol; Complete Time: 20:45 rn 07/20 19:06 Order name: O2 Sat Monitoring; Complete Time: 20:45 rn 07/20 19:06 Order name: Vital Signs; Complete Time: 20:45 rn Administered Medications: 17:50 Drug: NS 0.9% IV 1000 ml IV at 1 bolus Per protocol; to be given as a bolus over 60 me1 minutes Route: IV; Rate: 1 bolus; Site: right antecubital; 20:58 Follow up: Response: No adverse reaction; IV Status: Completed infusion; IV Intake: ay 1000ml 18:47 Drug: NS 0.9% IV 1000 ml IV at 1000 ml once; to be given as a bolus over 60 minutes hb Route: IV; Rate: 1000 ml; Site: left antecubital; 20:57 Follow up: Response: No adverse reaction; IV Status: Completed infusion; IV Intake: ay 1000ml 18:48 Drug: D5W IV 1000 ml, Sodium Bicarbonate IVP 150 mEq IV at calculated rate continuous hb {Note: Admin at 125mls/hr per Dr. Sales.} Route: IV; Rate: calculated rate; Site: right antecubital; 23:11 Follow up: IV Status: Infusion continued upon transfer ay 19:04 Drug: Insulin Drip - (Insulin Regular Human IVP 100 units, NS 0.9% IV 100 ml) IV at me1 calculated rate continuous; Standard concentration 1unit/ml; Dose for DKA is 0.1 units/kg/hr {Co-Signature: vahe (Brinda Miller RN).} {Note: START INSULIN DRIP AT 5 UNITS/HR PER DR SALES.} Route: IV; Rate: calculated rate; Site: left antecubital; 23:12 Follow up: IV Status: Infusion continued upon transfer ay 20:45 Drug: Rocephin IV 1 grams IV at calculated rate once; Given slow IV push per pharmacy vahe instructions Route: IV; Rate: calculated rate; Site: right antecubital; 20:57 Follow up: Response: No adverse reaction ay 21: Follow up: Response: No adverse reaction ay 21:01 Drug: Synthroid PO 150 mcg PO once Route: PO; ay 23:10 Follow up: Response: No adverse reaction ay Point of Care Testing: Blood Glucose: 16:27 Blood Glucose: 202 mg/dL; db Ranges: Critical Glucose Levels:Adult <50 mg/dl or >400 mg/dl <40 mg/dl or >180 mg/dl Disposition Summary: 07/20/24 19:45 Transfer Ordered Notes: Reason: Higher level of care ms3 Condition: Stable ms3 Problem: new ms3 Symptoms: are unchanged ms3 [facility] ms3 Accepting Physician: Dr Mansfield(07/20/24 23:12) ay Diagnosis - Metabolic acidosis ms3 - Other acute pancreatitis without necrosis or infection ms3 Forms: - Medication Reconciliation Form ms3 - SBAR form ms3 Critical care time excluding procedures: 20:52 Critical care time: Bedside Care: 35 minutes, Consultation: 5 minutes, Family ms3 Intervention: 5 minutes. Total time: 45 minutes Signatures: Dispatcher [employer] EDMS Felipe Sales MD MD rn Baxter, Heather, RN RN Stas Mckeon DO DO ms3 Kenyatta Avendaño, RN RN db Jennifer Siegel, RN RN meBrinda Figueroa, RN RN ay Brinda Miller RN Corrections: (The following items were deleted from the chart) 16:33 16:33 Abdomen Pelvis W Con+CT.RAD.BRZ ordered. EDMS EDMS 16:34 16:33 Abdomen Limited+US.RAD.BRZ ordered. EDMS EDMS 16:34 16:34 Chest Pa And Lat (2 Views)+RAD.RAD.BRZ ordered. EDMS EDMS 16:34 16:34 THYROID STIMULAT HORMONE+C.LAB.BRZ ordered. EDMS EDMS 16:34 16:34 T4 FREE+C.LAB.BRZ ordered. EDMS EDMS 20:57 19:45 Dr weinstein ms3 20:57 19:45 [facility] ms3 ms3 23:12 20:57 Dr Mansfield ms3 ay
[2024-07-20 19:51] LABS: Blood Morphology Comment NOT SEEN (NOT SEEN); Platelet Estimate ADEQ; White Blood Cell Scan OK (OK)
[2024-07-20] MEDS ORDERED: CEFTRIAXONE 1000 MG/VIAL ONE (20:00)
[2024-07-20] MEDS ORDERED: LEVOTHYROXINE SOD 0.075 MG TAB ONE (20:45)
[2024-07-20 21:04] LABS: Blood Gas Oxyhemoglobin 95.3 % (94-97); Blood O2 Saturation 98.3 % (92-98.5)
[2024-07-20 21:05] LABS: Blood Gas THB 14.2 g/dl (12-18)
[2024-07-20 21:05] LABS: PT Prothrombin Time 10.3 SECONDS (9.4-12.5); PTT, Activated Partial Thromb 24.3 SECONDS (24.3-36.9); Protime INR 0.98
[2024-07-21 05:07] VITALS: TEMP 98.4
[2024-07-21 05:10] VITALS: BP 137/95; O2SAT 100
--- NOTE | 2024-07-23 12:38 | EKG ---
Test Date: 2024-07-20 Test Time: 18:55:12 Tuber Machine Operator: MEASUREMENT RESULTS: Intervals: Rate: 97 LA: 164 QRSD: 80 QT: 308 QTc: 391 [place]: P: 67 LA: 164 QRS: 73 T: 25 INTERPRETIVE STATEMENTS: Normal sinus rhythm Low voltage QRS Nonspecific T wave abnormality Abnormal ECG Compared to ECG 04/14/2010 17:50:03 Low QRS voltage now present T-wave abnormality now present Electronically Signed On 07-23-24 12:33:14 SCRAP SAWYER by Artem Rock
== END 2024-07-20 23:12 | disposition short-term general hospital (02) ==
LOC: ER 15:44
DX: K85.80 Other acute pancreatitis without necrosis or infection (principal); E87.20 Acidosis, unspecified; E11.9 Type 2 diabetes mellitus without complications; Z11.52 Encounter for screening for COVID-19
CPT/HCPCS: 87040 ×2; 85025; 81001; 36415; 81025; 85610; 82947 ×2; 83605; 85730; 84443; 84439; 83690; 80053; 87804 ×2; 74177; 71046; 76705; 82805 ×2; 99285; 87811; 36600 ×2; Q9967; J7030 ×2; J0696; 93005